=== PATIENT | female | born 1985 | race American Indian/Alaskan Native ===

== ENCOUNTER 2018-11-15 12:09 | Emergency (ER) | payer OTHER ==
[2018-11-15 12:10] VITALS: BMI 31.4
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
[2018-11-15 13:51] VITALS: BP 128/80; PULSE 64; RESP 16; TEMP 98.9; O2SAT 97
== END 2018-11-15 13:53 | disposition home or self-care (01) ==
LOC: ED 12:09
DX: M54.2 Cervicalgia (principal); M54.9 Dorsalgia, unspecified
CPT/HCPCS: 96372; 99283; J1885